=== PATIENT | female | born 1955 | race Caucasian/White ===

== ENCOUNTER 2021-11-09 03:18 | Emergency (ER) | payer OTHER ==
[~2021-11-09] VITALS: Ht 152.4 cm; Wt 74.6 kg
[2021-11-09 03:36] VITALS: BP 204/80
== END 2021-11-09 08:14 | disposition left against medical advice (07) ==
LOC: ER 03:18
DX: Z53.21 Procedure and treatment not carried out due to patient leaving prior to being seen by health care provider (principal)